=== PATIENT | female | born 1995 | race Caucasian/White ===

== ENCOUNTER → 2020-01-09 14:30 | Outpatient (BNVA) | payer OTHER, SELFPAY | PROVIDERS: Visit Provider Obstetrics & Gynecology | DX: E28.2 Polycystic ovarian syndrome (principal) | CPT/HCPCS: 84144 ==

== ENCOUNTER → 2020-02-06 09:35 | Outpatient (BNVA) | payer OTHER, SELFPAY | PROVIDERS: Visit Provider Obstetrics & Gynecology | DX: N97.9 Female infertility, unspecified (principal) | CPT/HCPCS: 84144 ==

== ENCOUNTER → 2020-03-23 10:12 | Outpatient (BNVA) | payer OTHER, SELFPAY | PROVIDERS: Visit Provider Obstetrics & Gynecology | DX: E28.2 Polycystic ovarian syndrome (principal) | CPT/HCPCS: 84144 ==

== ENCOUNTER → 2020-04-23 10:09 | Outpatient (BNVA) | payer OTHER, SELFPAY | PROVIDERS: Visit Provider Obstetrics & Gynecology | DX: E28.2 Polycystic ovarian syndrome (principal) | CPT/HCPCS: 84144 ==

== ENCOUNTER → 2020-05-24 10:05 | Outpatient (BNVA) | payer OTHER, SELFPAY | PROVIDERS: Visit Provider Obstetrics & Gynecology | DX: N97.0 Female infertility associated with anovulation (principal) | CPT/HCPCS: 84144 ==

== ENCOUNTER 2020-09-19 07:52 | Outpatient (CLI) | payer OTHER, SELFPAY ==
--- NOTE | 2020-09-19 07:56 | FL_ITS ---
WS: [id number] HYSTEROSALPINGOGRAM The cervical opening was cannulated by the microsoft bi developer. Then under fluoroscopic guidance, water-solu ble contrast was injected in a retrograde fashion. CLINICAL INFORMATION: E28.2 - Polycystic ovarian syndrome COMPARISON: None. FINDINGS: The uterus fills eccentric to the right. No significant filling left half of the uterus which may be due to unicornuate or bicornuate configuration. This could be further evaluated with ultrasound. The right fallopian tube is normal and patent with normal rapid spillage of contrast into the peritoneum. No filling of the left fallopian tube. FLUOROSCOPY TIME: .6 minutes. FL/FL hysterosalpingography [id number] IMPRESSION: 1. Normal filling of the right fallopian tube with normal spillage. 2. No filling of the left fallopian tube. 3. No significant filling left half of the uterus which may be due to unicornu ate or bicornuate configuration. This can be further evaluated with transabdomi nal and endovaginal ultrasound for better anatomic detail.
[2020-09-19] MEDS: iohexol 300 mg/mL 50 mL Btl VAGINAL (08:25)
--- NOTE | 2020-09-19 09:15 | P.PCN_ITS ---
Procedure/Consent Procedure Narrative: RADIOLOGIC PROCEDURE DATE OF PROCEDURE: 09/19/2020 DATE OF DICTATION: 09/19/2020 TIME OF DICTATION: 09:16 PROCEDURAL DIAGNOSIS: Infertility associated with anovulation PROCEDURE: Placement of hysterosalpingogram catheter PHYSICIAN: Cordell Driscoll M.D. ANESTHESIA: None INDICATIONS: Patient is a 25-year-old female, nulligravida who is presenting for hysterosalpingogram for evaluation of infertility. PROCEDURE: The procedure was explained to the patient and verbal consent pro vided. Sterile speculum was placed in the vagina and the cervix was prepped with Betadine. The cervix was grasped with a single-tooth tenaculum. Using Omnipaque dye, the HSG catheter was primed. The catheter was inserted into the cervix. The speculum was removed. Fluoroscopy was performed by the radiologist. Omnipaque dye was injected into the endometrial cavity with normal filling of the cavity. Free spillage of dye noted from the right tube. No filling of the left tube was noted. The tenaculum and catheter were removed. Patient tolerated the procedure well. Please see separate radiologist's report for final interpretation. FOLLOWUP APPOINTMENT: She is to contact the office regarding next step in treatment.
== END 2020-09-19 07:53 | disposition home or self-care (01) ==
LOC: RAD 07:54
PROVIDERS: Visit Provider Obstetrics & Gynecology
DX: E28.2 Polycystic ovarian syndrome (principal)
CPT/HCPCS: 12345; 74740

== ENCOUNTER → 2021-01-18 09:19 | Outpatient (BNVA) | payer OTHER, SELFPAY | PROVIDERS: Visit Provider Obstetrics & Gynecology | DX: N97.0 Female infertility associated with anovulation (principal) | CPT/HCPCS: 84144 ==

== ENCOUNTER → 2021-01-30 14:42 | Outpatient (BNVA) | payer OTHER, SELFPAY | PROVIDERS: Visit Provider Obstetrics & Gynecology | DX: Z32.01 Encounter for pregnancy test, result positive (principal) | CPT/HCPCS: 84702 ==

== ENCOUNTER → 2021-02-05 10:11 | Outpatient (BNVA) | payer OTHER, SELFPAY | PROVIDERS: Visit Provider Obstetrics & Gynecology | DX: O20.9 Hemorrhage in early pregnancy, unspecified (principal); Z3A.00 Weeks of gestation of pregnancy not specified | CPT/HCPCS: 84702; 86850; 86900 ==

== ENCOUNTER 2021-04-16 07:43 | Outpatient (CLI) | payer OTHER, SELFPAY ==
--- NOTE | 2021-04-16 08:00 | FL_ITS ---
WS: [id number] HYSTEROSALPINGOGRAM The cervical opening was cannulated by the oil seal assembler. Then under fluoroscopic guidance, water-solu ble contrast was injected in a retrograde fashion. CLINICAL INFORMATION: N97.0 - Female infertility associated with anovulation COMPARISON: September 19, 2020 FINDINGS: The uterus fills normally, with no evidence of contour abnormality, filling defect, septum, stricture , mass, or bicornuate configuration. Uterus is displaced eccentric to the right unchanged from previo us. The bilateral uterine tubes are normal and patent with normal rapid spillage of contrast into the peritoneum. Normal filling and spillage of the left fallopian tube today. FLUOROSCOPY TIME: 0.3 minutes. FL/FL hysterosalpingography [id number] IMPRESSION: 1. Normal bilateral fallopian tube spillage today. 2. Uterus appears to fill normally today with normal contour. Uterus is slight ly displaced eccentric to the right but otherwise normal in appearance
[2021-04-16] MEDS: iohexol 300 mg/mL 50 mL Btl VAGINAL (08:43)
--- NOTE | 2021-04-16 09:00 | PM.ACPR ---
Procedure/Consent Procedure Narrative: Radiologic procedure Date of procedure: 04/16/2021 Date of dictation: 04/16/2021 Procedural diagnosis: Infertility Procedure done: Placement of hysterosalpingogram catheter Physician: Dr. Maurice Engle Anesthesia: None Indication: To assess patency of fallopian tubes Complications: None, patient tolerated the procedure well PROCEDURE: The procedure was explained to the patient and verbal consent provided. Sterile speculum was placed in the vagina and the cervix was prepped with Betadine. The cervix was grasped with a single-tooth tenaculum. Using Omnipaque dye, the HSG catheter was primed. The catheter was inserted into the cervix and the speculum was removed. Fluoroscopy was performed by the radiologist. Omnipaque dye was injected into the endometrial cavity with normal filling of the cavity. Bilateral tubes appeared normal caliber with immediate spill of dye bilaterally--- faster on the right side than the left side. The tenaculum and catheter were removed. Patient tolerated the procedure well. Please see separate radiologist report for final interpretation. Followup appointment: She is to followup at her next scheduled appointment
== END 2021-04-16 07:44 | disposition home or self-care (01) ==
LOC: RAD 07:46
PROVIDERS: Visit Provider Obstetrics & Gynecology
DX: N97.0 Female infertility associated with anovulation (principal)
CPT/HCPCS: 74740

== ENCOUNTER → 2021-04-26 08:47 | Outpatient (BNVA) | payer OTHER, SELFPAY | PROVIDERS: Visit Provider Obstetrics & Gynecology | DX: N97.0 Female infertility associated with anovulation (principal) | CPT/HCPCS: 83036; 83520; 84144; 84146; 84443 ==

== ENCOUNTER → 2021-06-13 08:18 | Outpatient (BNVA) | payer OTHER, SELFPAY | PROVIDERS: Visit Provider Obstetrics & Gynecology | DX: N97.0 Female infertility associated with anovulation (principal) | CPT/HCPCS: 84144; 84146 ==

== ENCOUNTER → 2021-06-28 09:11 | Outpatient (BNVA) | payer OTHER, SELFPAY | PROVIDERS: Visit Provider Obstetrics & Gynecology | DX: Z32.01 Encounter for pregnancy test, result positive (principal) | CPT/HCPCS: 84702 ==

== ENCOUNTER → 2021-07-05 10:17 | Outpatient (BNVA) | payer BC, SELFPAY | PROVIDERS: Visit Provider Obstetrics & Gynecology | DX: Z32.01 Encounter for pregnancy test, result positive (principal) | CPT/HCPCS: 84702 ==

== ENCOUNTER 2021-07-08 09:06 | Outpatient (CLI) | payer BC, SELFPAY | END 2021-07-08 09:07 | disposition home or self-care (01) | PROVIDERS: Visit Provider Obstetrics & Gynecology | DX: Z34.90 Encounter for supervision of normal pregnancy, unspecified, unspecified trimester (principal) | CPT/HCPCS: 36415; 84702 ==

== ENCOUNTER 2021-07-10 09:23 | Outpatient (CLI) | payer BC, SELFPAY | END 2021-07-10 09:24 | disposition home or self-care (01) | LOC: LAB 09:27 | PROVIDERS: Visit Provider Obstetrics & Gynecology | DX: Z34.90 Encounter for supervision of normal pregnancy, unspecified, unspecified trimester (principal) | CPT/HCPCS: 36415; 84702 ==

== ENCOUNTER 2021-07-12 08:37 | Outpatient (CLI) | payer BC, SELFPAY | END 2021-07-12 08:38 | disposition home or self-care (01) | LOC: LAB 08:39 | PROVIDERS: Visit Provider Obstetrics & Gynecology | DX: Z34.90 Encounter for supervision of normal pregnancy, unspecified, unspecified trimester (principal) | CPT/HCPCS: 36415; 84702 ==

== ENCOUNTER 2021-07-15 08:23 | Outpatient (CLI) | payer BC, SELFPAY | END 2021-07-15 08:24 | disposition home or self-care (01) | LOC: LAB 08:24 | PROVIDERS: Visit Provider Obstetrics & Gynecology | DX: Z34.90 Encounter for supervision of normal pregnancy, unspecified, unspecified trimester (principal) | CPT/HCPCS: 84702 ==

== ENCOUNTER → 2021-11-12 12:09 | Outpatient (BNVA) | payer BC, SELFPAY | PROVIDERS: Visit Provider Obstetrics & Gynecology | DX: R53.83 Other fatigue (principal) | CPT/HCPCS: 84443; 85025 ==

== ENCOUNTER → 2022-02-04 09:46 | Outpatient (BNVA) | payer BC, SELFPAY | PROVIDERS: Visit Provider Obstetrics & Gynecology | DX: N97.0 Female infertility associated with anovulation (principal) | CPT/HCPCS: 84144 ==

== ENCOUNTER → 2022-02-07 08:39 | Outpatient (BNVA) | payer BC, SELFPAY | PROVIDERS: Visit Provider Obstetrics & Gynecology | DX: N97.0 Female infertility associated with anovulation (principal) | CPT/HCPCS: 84144 ==

== ENCOUNTER → 2022-03-27 08:33 | Outpatient (BNVA) | payer BC, SELFPAY | PROVIDERS: Visit Provider Obstetrics & Gynecology | DX: N97.0 Female infertility associated with anovulation (principal) | CPT/HCPCS: 84144 ==

== ENCOUNTER → 2022-04-25 08:34 | Outpatient (BNVA) | payer BC, SELFPAY | PROVIDERS: Visit Provider Obstetrics & Gynecology | DX: N97.0 Female infertility associated with anovulation (principal) | CPT/HCPCS: 84144 ==

== ENCOUNTER → 2022-05-26 08:22 | Outpatient (BNVA) | payer BC, SELFPAY | PROVIDERS: Visit Provider Obstetrics & Gynecology | DX: N97.0 Female infertility associated with anovulation (principal) | CPT/HCPCS: 84144 ==

== ENCOUNTER → 2022-05-30 08:50 | Outpatient (BNVA) | payer BC, SELFPAY | PROVIDERS: Visit Provider Obstetrics & Gynecology | DX: Z12.4 Encounter for screening for malignant neoplasm of cervix (principal) | CPT/HCPCS: 88175 ==

== ENCOUNTER 2022-12-05 08:35 | Outpatient (CLI) | payer BC, SELFPAY ==
[2022-12-05 08:35] VITALS: BMI 29.1
[2022-12-05 08:51] VITALS: BP 121/74; PULSE 100
[2022-12-05 09:11] VITALS: BP 119/74; PULSE 101
== END 2022-12-05 09:30 | disposition home or self-care (01) ==
LOC: OPOB 08:44 → OBGYN 08:46
PROVIDERS: Visit Provider Family Medicine
DX: O36.8190 Decreased fetal movements, unspecified trimester, not applicable or unspecified (principal); Z3A.00 Weeks of gestation of pregnancy not specified
CPT/HCPCS: 59025; 99211

== ENCOUNTER 2023-01-20 16:59 | Outpatient (CLI) | payer BC, SELFPAY ==
[2023-01-20] VITALS (8 sets, daily range): BP systolic 102–134; BP diastolic 55–83; PULSE 85–104; RESP 18
== END 2023-01-20 19:04 | disposition home or self-care (01) ==
LOC: OPOB 17:09 → OBGYN 17:09
PROVIDERS: Visit Provider Family Medicine
DX: Z36.89 Encounter for other specified antenatal screening (principal)
CPT/HCPCS: 59025; 99211

== ENCOUNTER 2023-01-22 09:00 | Outpatient (CLI) | payer BC, SELFPAY ==
--- NOTE | 2023-01-22 10:30 | P.ANESASSM_ITS ---
Pre-Anesthetic Assessment Height/Weight: Height 1.65 m Preop Diagnosis: IUP epidural Familial anesthetic complications: none Social No alcohol and No tobacco Exam alert, oriented x 3, clear to auscultation bilaterally and regular rate & rhythm Airway Mallampati: Class II Dentition: full Anesthetic Plan ASA status: 2 Anesthesia: Regional (specify below) Risk of > 500 ml blood loss (7ml/kg in children): Yes, adequate IV access and fluids planned Medications/Allergies Home Medications Medication Instructions Recorded Confirmed Last Taken Type sertraline 50 mg tablet (Zoloft) 50 mg PO DAILY #90 tabs 06/23/22 12/05/22 12/04/22 08:00 Rx doxylamine succinate 25 mg tablet 25 mg PO BEDTIME 12/05/22 12/05/22 12/04/22 21:00 History (Unisom (doxylamine)) fluticasone propionate 50 1 spray intranasal DAILY 12/05/22 12/05/22 12/05/22 08:00 History mcg/actuation nasal spray,suspension loratadine 10 mg tablet 10 mg PO DAILY 12/05/22 12/05/22 12/05/22 08:00 History [id number] 1 mg 1 tab PO DAILY 12/05/22 12/05/22 12/04/22 08:00 History tablet vitamin B6-vitamin E-magnesium 1 tab PO BEDTIME 12/05/22 12/05/22 12/04/22 21:00 History tablet Allergies Allergy/AdvReac Type Severity Reaction Status Date / Time Sulfa (Sulfonamide Allergy Reaction Verified 05/30/22 08:09 Antibiotics) as an infant [facility] Anesthesia Medical History (Updated 06/16/22 @ 18:50 by Ye Mathis MD) No pertinent past medical history Denies diabetes, asthma, hypertension, seizures, DVT/PE PCP: None Polycystic ovarian syndrome Diagnosed with PCOS in 03/2018. Reports never having had regular cycles since menarche except when on control. Skips several months at a time. Reports increased facial hair and acne. Negative laboratory evaluation for other causes. Surgical History H/O wisdom tooth extraction (05/06/18) Family History Father Hypertension Diabetes Grandfather Diabetes Paternal grandfather Stroke Maternal grandfather Grandmother Colon cancer maternal, diagnosed at age 77 or 78 Denies family history of Ovarian cancer Heart disease Hyperlipidemia Breast cancer Uterine cancer Thyroid condition Social History Smoking and tobacco status: never smoked Substance/Drug Use: never Data Anesthesia Cardiac Studies: No Data to Display
== END 2023-01-22 23:00 | disposition home or self-care (01) ==
LOC: OPOB 02-26 16:35
PROVIDERS: Visit Provider Family Medicine
DX: Z36.9 Encounter for antenatal screening, unspecified (principal)

== ENCOUNTER 2023-02-03 19:21 | Inpatient (IN) | payer BC, SELFPAY ==
[2023-02-03] VITALS (94 sets, daily range): BP systolic 113–173; BP diastolic 61–100; PULSE 80–143; RESP 16; O2SAT 92–100; BMI 33.6
[2023-02-03] MEDS: vancomycin 1,750 MG/350 ML PIGGYBACK 280 MG IV (16:29)
[2023-02-03 16:39] LABS: Basophils # 0.1 10^3/uL (0.0-0.1); Basophils % 0.5 %; Eosinophils # 0.1 10^3/uL (0.0-0.8); Eosinophils % 0.9 %; Hematocrit 36.8 % (37.0-47.0); Hemoglobin 11.9 g/dL (11.5-15.3); Lymphocytes # 2.9 10^3/uL (0.8-4.8); Lymphocytes % 22.6 %; Mean Corpuscular HGB Conc 32.3 g/dL (30.0-36.0); Mean Corpuscular Volume 83.4 fl (81-99); Monocytes # 1.1 10^3/uL (0.2-0.9); Monocytes % 8.6 %; Neutrophils # 8.38 10^3/uL (1.8-7.7); Neutrophils % 66.3 %; Nucleated Red Blood Cells % 0.2 %; Platelet Count 317 10^3/cmm (130-400); Red Blood Count 4.41 10^6/uL (4.1-5.3); Red Cell Distribution Width 14.3 % (12.1-15.1); White Blood Count 12.7 10^3/uL (4.0-10.0)
--- NOTE | 2023-02-03 18:14 | ANES.PAUD2 ---
Pre-Anesthetic Update Pre-Anesthetic Assessment: Date of Surgery/Procedure: 02/03/23 Proposed Procedure: epdural Any changes to Pre-Anesthetic Assessment?: No Labs Last 48hrs: Short CBC 02/03/23 Range/Units 16:00 WBC 12.7 H (4.0-10.0) 10^3/ uL Hgb 11.9 (11.5-15.3) g/dL Hct 36.8 L (37.0-47.0) % MCV 83.4 (81-99) fl Plt Count 317 (130-400) 10^3/c mm Neut % (Auto) 66.3 % Neut # (Auto) 8.38 H (1.8-7.7) 10^3/u L Vitals: Pulse Rate 92 02/03/23 18:11 Pulse Rhythm Regular 02/03/23 16:22 Pulse Strength 3+ Normal 02/03/23 16:22 Respiratory Effort Spontaneous, Non- Labored 02/03/23 16:22 Respiratory Depth Normal 02/03/23 16:22 Respiratory Patter n Normal 02/03/23 16:22 Blood Pressure 133/72 02/03/23 18:11 Pulse Oximetry 99 02/03/23 17:57 Oxygen Delivery Me thod Room Air 02/03/23 16:22 Exam: Pre-Anes Outpt Exam: alert, oriented x 3, clear to auscultation bilaterally and regular rate & rhythm Cardiac Studies: No Data to Display Anesthesia Procedures Epidural: Time Out Performed: Yes Consents Signed: Procedure Consent Consent: requested by attending/covering physician, from patient, from other, risks and benefits reviewed and patient agrees to proceed Lumbar Level: L3-L4 Epidural position: sitting Epidural procedure: sterile prep of area, 1% lidocaine to numb the area, 18 g needle, negative for paresthesia passed, neg for paresthesia, test dose given, 1.5% xylocaine 1:200k epi (5), 0.2% Ropivacaine bolus ml (5), placed PCEA, no systemic response, sterile dressing applied, L.U.D. no apparent complications and 0.2% Ropiavacaine @ mls/hr (3) Additional Comments: ESVIN at 6 cm threaded to 12 cm, still some residual pain on R but lessened. Encouraged bolus use
[2023-02-03] MEDS: dextrose 5%-lactated ringers 1,000 ML 125 ML IV (18:18)
--- NOTE | 2023-02-03 21:28 | PM.OPHPUD ---
Labor & Delivery H&P Update Date of Procedure: February 03, 2023 Date H&P Performed: 01/30/23 Changes to previous documentation: Cervix is 4 cm dilated and she is having contractions every 2 to 5 minutes. Admission Diagnosis: 28-year-old 1 at 39 weeks estimated gestational age of 39 weeks who presented to the hospital with contractions. Planned procedure: Vaginal delivery Other information: The patient is a pleasant 28-year-old female at 39 weeks estimated stational age presenting to the hospital with contractions. She was found to be making cervical change. She was admitted. An epidural was placed. An amniotomy was performed. Her was relatively unremarkable. Her blood type is a positive. Her antibody screen was negative. She failed her 1 hour glucose screen but passed her 3-hour she is rubella nonimmune. The remainder of her infectious disease profile was within normal limits. She was GBS positive and placed on vancomycin as she had an unclear penicillin allergy. Related Problem List Diagnoses (1) 39 weeks gestation of : Anticipate routine labor and vaginal delivery. She is placed on GBS protocol. (2) Positive GBS test: A&P Assessment and plan (1) 39 weeks gestation of : Status: Acute (2) Positive GBS test: Status: Acute
--- NOTE | 2023-02-03 21:40 | P.PCNOB_ITS ---
Delivery Note: Date of delivery: February 03, 2023 Pre-delivery diagnoses: 28-year-old 3 para 0-0-2-0 at 39 weeks estimated gestational age in active labor Post-delivery diagnoses: Status post vacuum-assisted vaginal delivery Procedure: Vacuum-assisted vaginal delivery Delivering Physician: Willam Amador Estimated blood loss (mL): 100 Pre-Delivery Course: The patient presented to the hospital in active labor. Amniotomy was performed. An epidural was placed. She progressed to complete without difficulty. She was placed on GBS protocol. Delivery: DELIVERY: The patient progressed to complete without difficulty. The nurses began pushing with the patient. The patient's heart rate dropped in the 60s and was slow return to baseline. The baby was noted to be in a +3 station. Due to the decrease in heart rate. I elected to proceed with a vacuum delivery. A vacuum assist was used on 2 contractions. The baby's head was then delivered and the baby was noted to have a probable shoulder dystocia. The nurses were instructed to initiate Radha, and then shortly after that suprapubic pressure was placed while I performed a wood screw maneuver and the the shoulder and body of the baby was delivered about 90 seconds after the head was delivered. She delivered a male with a weight of 7 pounds 13 ounces with Apgars of 5, 9. The baby was delivered from the MICHAEL position and placed on the mother's abdomen. The cord was then clamped and cut and the nurses brought the baby to the warmer for further care. There was a nuchal cord x1 which the baby was delivered through. Light meconium was noted. The placenta and 3 vessel cord were delivered intact shortly thereafter. The perineum and vaginal vault were carefully examined. A first-degree laceration was noted to on the left posterior vaginal wall. It was repaired with 2 [id number] stitches with 3- 0 Vicryl.. Both the mother and the baby were in stable condition. History History History 3 Term 0 0 Miscarriages/Ectopic 2 Living Children 0 A&P Assessment and plan (1) 39 weeks gestation of : I anticipate routine care. (2) Positive GBS test: (3) Vacuum-assisted vaginal delivery: Coding Level of Care Code Acute Code for Chg Fwd Diagnoses 39 weeks gestation of Z3A.39 Positive GBS test B95.1 Vacuum-assisted vaginal delivery Z37.9
[2023-02-03] MEDS: acetaminophen 325 mg Tablet 650 MG PO (22:48)
[2023-02-03] MEDS: lactated ringers 1,000 ML 999 ML IV (23:27)
[2023-02-03] MEDS: lanolin oint 7 gm 1 APPLIC TOPICAL (23:51)
[2023-02-03] MEDS: benzocaine-menthol 78 gm Canister 1 SPRAY TOPICAL (23:51)
[2023-02-04] VITALS (7 sets, daily range): BP systolic 119–138; BP diastolic 69–84; PULSE 78–104; RESP 15–18; TEMP 36.6–37.1; O2SAT 97–99
--- NOTE | 2023-02-04 00:13 | PC.NURSE ---
On assessment this nurse noted a scrape on front of right leg. Patient stated she fell down at 37 weeks gestation and received medical care at the time of fall. Patient does not report any pain or discomfort from this injury at this time.
[2023-02-04] MEDS: HYDROcodone-acetaminophen 5-325 mg Tablet PO (06:18)
--- NOTE | 2023-02-04 07:25 | PM.OBGYDC ---
Discharge Providers RETAIL ACCOUNT MANAGER Date of Admission: 02/03/23 19:21 Date of Discharge: 02/05/23 Attending Provider at Admission: Willam Amador MD Attending Provider at Discharge: Willam Amador MD Diagnoses at Discharge Discharge Diagnosis (1) 39 weeks gestation of : Status: Acute (2) Positive GBS test: Status: Acute (3) Vacuum-assisted vaginal delivery: Status: Acute Reason for Visit Reason for Visit: Abdominal pain Hospital Course Hospital Course The patient presented to the hospital in active labor. An amniotomy was performed. An epidural was placed. She progressed to complete and had a vacuum-assisted vaginal delivery with shoulder dystocia. Her course was otherwise unremarkable. Her bleeding was within normal limits. She breast-fed well. Her pain was well controlled. Information Peripartum Data: Infant Delivery Method: Vaginal Physical Exam Narrative: The patient is alert. She appears comfortable. Her heart has a regular rate and rhythm with no murmurs appreciated. Lungs are clear to auscultation bilaterally. Her fundus is firm and below the umbilicus. Urinary Catheter Management: Loyd: Cath Placed During This Visit: yes Reason for Continuing Indwelling Catheter: Other Urinary Catheter Date of Insertion: 02/03/23 Urinary Catheter Time of Insertion: 18:25 History History History 3 Term 0 0 Miscarriages/Ectopic 2 Living Children 0 Discharge Data Studies Completed and Pending Pending at discharge Category Date Time Status Hemagram Timed Lab 02/04/23 10:04 Uncollected Laboratory Results WBC 12.7 10^3/uL (4.0-10.0) H 02/03/23 16:00 RBC 4.41 10^6/uL (4.1-5.3) 02/03/23 16:00 Hgb 11.9 g/dL (11.5-15.3) 02/03/23 16:00 Hct 36.8 % (37.0-47.0) L 02/03/23 16:00 MCV 83.4 fl (81-99) 02/03/23 16:00 MCH 27.0 pg (28.0-34.0) L 02/03/23 16:00 MCHC 32.3 g/dL (30.0-36.0) 02/03/23 16:00 RDW 14.3 % (12.1-15.1) 02/03/23 16:00 Plt Count 317 10^3/cmm (130-400) 02/03/23 16:00 MPV 13.0 fL (7.4-10.4) H 02/03/23 16:00 Neut % (Auto) 66.3 % 02/03/23 16:00 Lymph % (Auto) 22.6 % 02/03/23 16:00 [place] % (Auto) 8.6 % 02/03/23 16:00 Eos % (Auto) 0.9 % 02/03/23 16:00 Baso % (Auto) 0.5 % 02/03/23 16:00 Neut # (Auto) 8.38 10^3/uL (1.8-7.7) H 02/03/23 16:00 Lymph # (Auto) 2.9 10^3/uL (0.8-4.8) 02/03/23 16:00 [place] # (Auto) 1.1 10^3/uL (0.2-0.9) H 02/03/23 16:00 Eos # (Auto) 0.1 10^3/uL (0.0-0.8) 02/03/23 16:00 Baso # (Auto) 0.1 10^3/uL (0.0-0.1) 02/03/23 16:00 Nucleated RBC % (auto) 0.2 % 02/03/23 16:00 Nucleated RBCs # 0.0 /100WBC 02/03/23 16:00 Vitals Last Vital Signs Temp 98.7 F 02/04/23 05:05 Pulse 92 02/04/23 05:05 Resp 16 02/04/23 05:05 BP 119/78 02/04/23 05:05 Pulse Ox 97 02/04/23 03:05 O2 Del Method Room Air 02/04/23 03:05 Discharge Plan Discharge Patient Disposition: Home Condition: Stable Prescriptions: New ibuprofen 800 mg Tablet 800 mg PO TID Qty: 45 0RF -U 106.5-1 mg Capsule 1 cap PO DAILY Qty: 90 0RF Continued sertraline [Zoloft] 50 mg tablet 50 mg PO DAILY Qty: 90 3RF fluticasone propionate 50 mcg/actuation [place],Suspension 1 spray INTRANASAL DAILY Rx Instructions: administer into each nostril loratadine 10 mg Tablet 10 mg PO DAILY Discontinued 1 mg Tablet 1 tab PO DAILY Unisom (doxylamine) 25 mg Tablet 25 mg PO BEDTIME vitamin B6-vitamin E-magnesium Tablet 1 tab PO BEDTIME Discharge Orders: Discharge Order (Routine); Ordered 02/04/23 Ordered By: Willam Amador Referrals: Willam Amador MD [Physician] - 6 Weeks Discharge Diet: Usual diet Discharge Activity: Limit activity as instructed Patient Instructions: Depression (DC), Bleeding (DC), Preeclampsia and Eclampsia After Delivery (GEN), Hemorrhage (DC), OB Discharge Report, OB Food/Drug Interaction Guide, OB Care at Home, Opioid Safety, OB Vaginal Deliveries Discharge Attestations RETAIL ACCOUNT MANAGER Time Spent in Discharge Care*: less than 30 min Coding Level of Care Code Acute Code for Chg Fwd Diagnoses 39 weeks gestation of Z3A.39 Positive GBS test B95.1 Vacuum-assisted vaginal delivery Z37.9
[2023-02-04] MEDS: docusate sodium 100 mg Capsule PO ×2 (09:03→18:20)
[2023-02-04] MEDS: prenatal vitamin Capsule 1 CAP PO (09:03)
[2023-02-04] MEDS: ibuprofen 800 mg tablet PO ×3 (09:03→20:38)
[2023-02-04] MEDS: aspirin 81 mg EC Tablet PO (09:03)
[2023-02-04] MEDS: loratadine 10 mg Tablet PO (09:04)
[2023-02-04] MEDS: sertraline 50 mg Tablet PO (09:04)
[2023-02-04 09:52] LABS: Hematocrit 32.8 % (37.0-47.0); Hemoglobin 10.3 g/dL (11.5-15.3); Mean Corpuscular HGB Conc 31.4 g/dL (30.0-36.0); Mean Corpuscular Hemoglobin 27.2 pg (28.0-34.0); Mean Corpuscular Volume 86.8 fl (81-99); Mean Platelet Volume 12.9 fL (7.4-10.4); Platelet Count 248 10^3/cmm (130-400); Red Blood Count 3.78 10^6/uL (4.1-5.3); Red Cell Distribution Width 14.6 % (12.1-15.1); White Blood Count 20.9 10^3/uL (4.0-10.0)
--- NOTE | 2023-02-04 13:41 | ANE.PACU2 ---
Inpatient post-anesthesia follow up: Airway intact: Yes Vital signs: Temperature 98.1 F Pulse Rate 100 Respiratory Rate 16 Blood Pressure 132/82 Pulse Oximetry 98 Oxygen Delivery Me thod Room Air Oxygen Flow Rate Fraction of Inspir ed Oxygen Hydration adequate: Yes Nausea and vomiting: Yes Pain level: 1 Mental status: Baseline
[2023-02-05 04:41] VITALS: BP 128/73; PULSE 86; RESP 16; TEMP 36.8
--- NOTE | 2023-02-05 06:12 | PM.OBGYPN ---
[employer]ACLE APPLICATION CONSULTANT Subjective Subjective: Interval history: This note corresponds to February 04. The patient is doing well. Her bleeding is minimal. She is breast-feeding well. Her pain is well controlled. Labor: Station: +2 Amniotic Membrane Status: Ruptured Monitor Mode: External Contraction Pattern: Regular Vitals/I&O/Wt Last Vital Signs Temp 98.3 F 02/05/23 04:41 Pulse 86 02/05/23 04:41 Resp 16 02/05/23 04:41 BP 128/73 02/05/23 04:41 Pulse Ox 99 02/04/23 21:19 O2 Del Method Room Air 02/04/23 21:19 Weight last 48 hrs Weight 196 lb Physical Exam Narrative: The patient is alert. She appears comfortable. Her heart has a regular rate and rhythm with no murmurs appreciated. Lungs are clear to auscultation bilaterally. Her fundus is firm and below the umbilicus. Urinary Catheter Management: Loyd: Cath Placed During This Visit: yes Reason for Continuing Indwelling Catheter: Other Urinary Catheter Date of Insertion: 02/03/23 Urinary Catheter Time of Insertion: 18:25 Data 02/04/23 09:15 A&P Assessment and plan (1) Vacuum-assisted vaginal delivery: Patient is doing well. I Anticipate she will be discharged home tomorrow. (2) 39 weeks gestation of : Attestations Medical Necessity Statement*: Routine post vaginal delivery care Coding Level of Care Code Acute Code for Chg Fwd Diagnoses Vacuum-assisted vaginal delivery Z37.9 39 weeks gestation of Z3A.39
[2023-02-05 11:00] VITALS: BP 132/82; PULSE 100; RESP 16; TEMP 36.7; O2SAT 98
== END 2023-02-05 11:30 | disposition home or self-care (01) | DRG 807 ==
LOC: OPOB 19:25 → OBGYN 19:25
PROVIDERS: Admitting Provider Family Medicine; Visit Provider Family Medicine
DX: O99.824 Streptococcus B carrier state complicating childbirth (principal); Z37.0 Single live birth; O66.0 Obstructed labor due to shoulder dystocia; Z3A.39 39 weeks gestation of pregnancy
CPT/HCPCS: 36415; 51702; 59025; 59409; 85025; 85027; 98960; 99211; J2795; J3372; J7040; J7120; J7121

== ENCOUNTER → 2024-02-16 11:53 | Outpatient (BNVA) | payer OTHER, SELFPAY | PROVIDERS: PCP Clinical Nurse Specialist Adult Health; Visit Provider Clinical Nurse Specialist Adult Health | DX: R35.0 Frequency of micturition (principal); F41.9 Anxiety disorder, unspecified; F32.A Depression, unspecified; N39.0 Urinary tract infection, site not specified; R30.0 Dysuria | CPT/HCPCS: 81000; 87086 ==